=== PATIENT | female | born 1975 | race Caucasian/White ===

== ENCOUNTER 2016-06-19 12:19 | Inpatient (IN) ==
[2016-06-20] MEDS ORDERED: TUBERSOL ID ONE (16:19)
[2016-06-20 16:27] LABS: URINE SOURCE CLEAN CATCH
[2016-06-20 16:45] LABS: BILIRUBIN URINE NEGATIVE (NEGATIVE); BLOOD URINE NEGATIVE (NEGATIVE); CLARITY CLEAR (CLEAR); COLOR YELLOW; GLUCOSE URINE NEGATIVE (NEGATIVE); LEUKOCYTES URINE TRACE (NEGATIVE); NITRITE URINE NEGATIVE (NEGATIVE); PH URINE 6.5; PROTEIN URINE NEGATIVE (NEGATIVE); URINE MICROSCOPIC NEEDED? YES; UROBILINOGEN URINE NORMAL
[2016-06-20 16:48] LABS: URINE EPITHELIAL CELLS <10 /HPF (<10); URINE RBC <10 /HPF (<10); URINE WBC <10 /HPF (<10)
[2016-06-20 16:58] LABS: UR AMPHETAMINES QUAL NONE DETECTED (NONE DETECT); UR BARBITUATES QUAL NONE DETECTED (NONE DETECT); UR BENZODIAZEPIN QUAL NONE DETECTED (NONE DETECT); UR CANNABINOIDS QUAL NONE DETECTED (NONE DETECT); UR COCAINE QUAL NONE DETECTED (NONE DETECT); UR MDMA QUAL NONE DETECTED (NONE DETECT); UR METHADONE QUAL NONE DETECTED (NONE DETECT); UR METHAMPHETAMINE QUAL NONE DETECTED (NONE DETECT); UR OPIATES QUAL NONE DETECTED (NONE DETECT); UR OXYCODONE QUAL NONE DETECTED (NONE DETECT); UR PCP QUAL NONE DETECTED (NONE DETECT); UR TCA QUAL NONE DETECTED (NONE DETECT)
[2016-06-20 17:15] LABS: MANUAL DIFF NEEDED? NO
[2016-06-20 17:22] LABS: BASO% 0.4 % (0.0-0.8); EOS# 0.21 X1000 (0.0-0.7); EOS% 2.7 % (0.0-10.0); HEMATOCRIT 35.8 % (37.0-47.0); HEMOGLOBIN 11.5 g/dL (12.0-16.0); IMM GRAN# 0.03 X1000 (0.0-0.04); IMM GRAN% 0.4 % (0.0-0.5); LYMPH# 2.53 X1000 (1.2-3.4); LYMPH% 32.6 % (20.5-51.1); MCH 29.5 PG (27-31); MCHC 32.1 g/dL (33-37); MCV 91.8 FL (81-99); MONO# 0.42 X1000 (0.11-0.59); MONO% 5.4 % (1.7-9.3); MPV 9.7 FL (7.4-10.4); NEUT% 58.5 % (42.2-75.2); PLT 291 X1000 (130-400)
[2016-06-20 17:36] LABS: INR 0.88 (0.86-1.15); PROTIME 12.3 Seconds (12.1-15.5)
[2016-06-20 18:04] LABS: AGAP 12; ALBUMIN 3.9 g/dL (3.5-5.0); ALKALINE PHOSPHATASE 36 U/L (32-104); AMYLASE 31 U/L (20-200); BUN 13 mg/dL (8-22); CALCIUM 9.6 mg/dL (8.8-10.2); CHLORIDE 98 mmol/L (98-107); COSMO 274; GOT 21 U/L (10-30); GPT 36 U/L (10-36); LIPASE 20 U/L (13-60); POTASSIUM 3.6 mmol/L (3.5-5.1); SODIUM 137 mmol/L (136-145); TCO2 28 mmol/L (25-35); TOTAL BILIRUBIN < 0.15 mg/dL (0.20-1.00); TOTAL PROTEIN 6.9 g/dL (6.3-8.3)
[2016-06-20] MEDS ORDERED: SENOKOT PO PRN (18:24)
[2016-06-20] MEDS ORDERED: DULCOLAX PR PRN (18:24)
[2016-06-20] MEDS ORDERED: SALINE LOCK IV FLUID XX ONE (18:24)
[2016-06-20] MEDS ORDERED: IMODIUM PO PRN (18:24)
[2016-06-20] MEDS ORDERED: MAALOX PLUS LIQUID PO PRN (18:24)
[2016-06-20] MEDS ORDERED: TYLENOL PO PRN (18:24)
[2016-06-20] MEDS ORDERED: BENTYL PO PRN (18:24)
[2016-06-20] MEDS: THERA M PLUS PO SCH (18:58)
[2016-06-20] MEDS: FOLIC ACID PO SCH (18:59)
[2016-06-20] MEDS: LIBRIUM PO PRN (18:59)
[2016-06-20] MEDS: SUBOXONE 2 MG/0.5 MG SL SCH (18:59)
[2016-06-20] MEDS: PHENERGAN PO PRN (18:59)
[2016-06-20] MEDS: NICODERM PATCH TD SCH (19:00)
[2016-06-20] MEDS ORDERED: M.V.I.-12 10 ML, FOLIC ACID 1 MG, MAGNESIUM SULFATE 1 GM, THIAMINE 100 MG in NS 1,000 ML IV ONE (19:00)
[2016-06-20] MEDS: VITAMIN B-1 PO SCH (19:02)
[2016-06-20] MEDS: AMBIEN PO PRN (19:48)
[2016-06-20] MEDS: ROBAXIN PO PRN (23:44)
[2016-06-21] MEDS: PHENERGAN PO PRN ×3 (01:16→20:06)
[2016-06-21] MEDS: LIBRIUM PO PRN ×3 (01:16→20:06)
[2016-06-21] MEDS: SUBOXONE 2 MG/0.5 MG SL SCH (06:33)
[2016-06-21] MEDS: SUBOXONE 8 MG/2 MG SL SCH ×2 (09:01→20:06)
[2016-06-21] MEDS: FOLIC ACID PO SCH (09:01)
[2016-06-21] MEDS: VITAMIN B-1 PO SCH (09:01)
[2016-06-21] MEDS: NICODERM PATCH TD SCH (09:01)
[2016-06-21] MEDS: THERA M PLUS PO SCH (09:02)
[2016-06-21] MEDS: MOTRIN PO PRN (14:30)
[2016-06-21] MEDS: ROBAXIN PO PRN (14:30)
[2016-06-21] MEDS: ZOFRAN IV PRN ×2 (14:30→23:17)
[2016-06-21] MEDS: AMBIEN PO PRN (20:06)
[2016-06-21 20:33] LABS: URINE SOURCE CLEAN CATCH
[2016-06-21 21:08] LABS: BILIRUBIN URINE NEGATIVE (NEGATIVE); BLOOD URINE 4+ (NEGATIVE); CLARITY VERY CLOUDY (CLEAR); COLOR RED; GLUCOSE URINE NEGATIVE (NEGATIVE); LEUKOCYTES URINE 1+ (NEGATIVE); NITRITE URINE POSITIVE (NEGATIVE); PH URINE 6.5; PROTEIN URINE 2+(100 mg/dL) mg/dL (NEGATIVE); SP GRAVITY URINE 1.015; URINE MICROSCOPIC NEEDED? YES; UROBILINOGEN URINE NORMAL
[2016-06-21 21:30] LABS: URINE EPITHELIAL CELLS <10 /HPF (<10); URINE RBC TNTC /HPF (<10)
[2016-06-22] MEDS: FOLIC ACID PO SCH (08:35)
[2016-06-22] MEDS: SUBOXONE 8 MG/2 MG SL SCH ×2 (08:35→20:17)
[2016-06-22] MEDS: THERA M PLUS PO SCH (08:35)
[2016-06-22] MEDS: LIBRIUM PO PRN ×2 (08:35→20:20)
[2016-06-22] MEDS: VITAMIN B-1 PO SCH (08:35)
[2016-06-22] MEDS: PHENERGAN PO PRN ×2 (08:43→20:17)
[2016-06-22] MEDS: NICODERM PATCH TD SCH (10:11)
[2016-06-22] MEDS: ROBAXIN PO PRN ×2 (11:35→20:17)
[2016-06-22] MEDS: ZOFRAN IV PRN (11:35)
--- NOTE | 2016-06-22 15:35 | PROGRESS NOTE ---
DATE: 06/22/2016 SUBJECTIVE: Patient notes she still feels bad, did not sleep well. She is still hurting and aching all over. Occasional nausea. She is feeling much more depressed and stressed. Has not been out of bed. Denies any current paresthesias. Denies any sweating. Denies any fevers or chills. PHYSICAL: Signs reviewed and stable. She is awake, alert, oriented.HEENT: Normocephalic atraumatic. Neck: Supple. CV: Regular rate. Chest: Relatively clear. Abdomen: Soft. Extremities: Moves all extremities. Neurologic: No focal changes. Vital Signs: She is afebrile. Pulse 80s, respiratory 20. ASSESSMENT: 1. UTI. We will start her on Cipro. 2. Nausea and vomiting. 3. Abdominal pain. Hopefully treating the UTI will improve. 4. Muscle spasms improving. 5. Paresthesias resolved. 6. Opiate abuse withdrawal and stabilization. 7. Anxiety and depression. Overall patient has improved. She still is having issues with stress and depression which certainly could be creating some of her other symptoms. She has a UTI. We will place her on Cipro. We will continue Suboxone. Continue counseling. Hopefully home in the next 1-2 days. cc: Mario Chahal MD
[2016-06-22] MEDS: CIPRO PO SCH (20:16)
[2016-06-22] MEDS: AMBIEN PO PRN (20:17)
[2016-06-22] MEDS: SEROQUEL PO SCH (23:01)
[2016-06-22] MEDS: MOTRIN PO PRN (23:01)
[2016-06-23] MEDS: CIPRO PO SCH ×2 (08:48→20:20)
[2016-06-23] MEDS: PHENERGAN PO PRN ×2 (08:48→14:45)
[2016-06-23] MEDS: LIBRIUM PO PRN ×3 (08:48→20:29)
[2016-06-23] MEDS: THERA M PLUS PO SCH (08:48)
[2016-06-23] MEDS: VITAMIN B-1 PO SCH (08:48)
[2016-06-23] MEDS: FOLIC ACID PO SCH (08:48)
[2016-06-23] MEDS: SUBOXONE 8 MG/2 MG SL SCH ×2 (08:48→20:21)
[2016-06-23] MEDS: NICODERM PATCH TD SCH (10:37)
--- NOTE | 2016-06-23 13:59 | PROGRESS NOTE ---
DATE: 06/23/2016 SUBJECTIVE: The patient notes that she is still shaky and jittery. She is somewhat sleepy today. Denies any chest pain, palpitations. Denies any fevers or chills. OBJECTIVE: Vital Signs: Reviewed. Temperature 97 degrees, pulse 97, respiratory rate 18, BP 131/84, saturation 96% on room air. General: Patient is awake, alert. She is sleepy on exam but easily arousable. HEENT: Normocephalic. Neck: Supple. CV: Regular rate. Chest: Relatively clear. Abdomen: Soft. Extremities: Moves all extremities well. Neurologic: No focal neurological changes. Skin: Warm and dry. No rashes. LABS: Reviewed and stable. ASSESSMENT: 1. Opiate abuse, withdrawal, and stabilization. We will continue Suboxone. 2. Acute anxiety. We will continue symptomatic Librium. Started Seroquel last night which certainly could be the cause that she still so sleepy this morning. We will hold on to her tonight and follow, as she was having an anxiety attack last night and had not slept in 2 days. 3. Insomnia. 4. Myalgias. 5. Muscle spasms. PLAN: We will continue Suboxone. Continue Seroquel tonight. We will continue to follow. Keep her in-house 1 more day due to the somnolence and the acute anxiety as I am certainly afraid that she may make bad choices upon discharge. cc: Mario Chahal MD
[2016-06-23] MEDS: MOTRIN PO PRN (14:47)
[2016-06-23] MEDS: ROBAXIN PO PRN ×2 (14:49→20:21)
[2016-06-23] MEDS: AMBIEN PO PRN (20:21)
[2016-06-23] MEDS: SEROQUEL PO SCH (20:21)
[2016-06-24] MEDS: THERA M PLUS PO SCH (09:00)
[2016-06-24] MEDS: VITAMIN B-1 PO SCH (09:00)
[2016-06-24] MEDS: LIBRIUM PO PRN ×2 (09:01→20:11)
[2016-06-24] MEDS: SUBOXONE 8 MG/2 MG SL SCH ×2 (09:01→20:12)
[2016-06-24] MEDS: ROBAXIN PO PRN ×2 (09:01→20:12)
[2016-06-24] MEDS: CIPRO PO SCH (09:01)
[2016-06-24] MEDS: PHENERGAN PO PRN (09:01)
[2016-06-24] MEDS: NICODERM PATCH TD SCH (09:01)
[2016-06-24] MEDS: FOLIC ACID PO SCH (09:01)
[2016-06-24] MEDS ORDERED: SUBOXONE 2 MG/0.5 MG SL ONE (12:41)
[2016-06-24] MEDS: SEPTRA DS PO SCH ×2 (13:04→20:14)
[2016-06-24] MEDS: MOTRIN PO PRN ×2 (13:10→20:11)
--- NOTE | 2016-06-24 14:23 | PROGRESS NOTE ---
DATE: 06/23/2016 SUBJECTIVE: Patient still with complaints of abdominal pain, back pain, myalgias, still does not feel well. OBJECTIVE: Vital Signs: Reviewed. Temperature 97 degrees, pulse 99, respiratory rate 18, BP 107/77, saturations 100% on room air. General: Patient is awake, alert, oriented. She is currently in no real respiratory distress. HEENT: Normocephalic, atraumatic. SHAYLA. Neck: Supple. CV: Regular rate. Chest: Relatively clear. Abdomen: Soft, nondistended. Extremities: Moves all extremities. Neurologic: No changes. ASSESSMENT: 1. Urinary tract infection. Patient does appear to have a urinary tract infection on a recent urinalysis. However a culture apparently was not set up. Will change her from Cipro to Bactrim. 2. Myalgias. 3. Nausea, vomiting. 4. Abdominal pain. 5. Tremors. 6. Paresthesias. 7. Opiate abuse withdrawal. Patient continues to have some opiate withdrawal type symptoms. Therefore will increase her Suboxone to 8/2 in the a.m. and p.m. and give her 1-time dose of 2 mg this afternoon. cc: Mario Chahal MD
--- NOTE | 2016-06-24 19:34 | DISCHARGE SUMMARY ---
ADMISSION DATE: 06/20/2016 DISCHARGE DATE: DISCHARGE DIAGNOSES: 1. Nausea, vomiting. 2. Abdominal pain. 3. Tremors. 4. Myalgias. 5. Paresthesias. 6. Paroxysmal sweating. 7. Opiate abuse, withdrawal and stabilization. 8. Bipolar depression. CONSULTATIONS: None. PROCEDURES: None. BRIEF HOSPITAL COURSE: Patient is a 40-year-old female who presented to [facility] as noted on the HPI. Treated in usual fashion. Placed on Suboxone which she tolerated very well. She thankfully had an uneventful hospital course, continued to improve. On discharge she is awake, alert, oriented. She is in no distress. DISPOSITION: Thirty-five minutes was spent in discharge planning and instructions. Discussed with patient that she needs to avoid all persons, places, situations which she has been using and abusing in the past. She needs outpatient life counseling as well as drug counseling. Will discharge home on Suboxone 10/10 twice a day to follow up outpatient with clinic of her choice. cc: Mario Chahal MD
[2016-06-24] MEDS: AMBIEN PO PRN (20:11)
[2016-06-24] MEDS: SEROQUEL PO SCH (20:11)
[2016-06-24] MEDS ORDERED: PYRIDIUM PO ONE (21:39)
[2016-06-24] MEDS ORDERED: MIRALAX PO ONE (22:18)
[2016-06-25 00:04] LABS: BILIRUBIN URINE NEGATIVE (NEGATIVE); BLOOD URINE 4+ (NEGATIVE); CLARITY CLEAR (CLEAR); COLOR YELLOW; GLUCOSE URINE NEGATIVE (NEGATIVE); LEUKOCYTES URINE 1+ (NEGATIVE); NITRITE URINE NEGATIVE (NEGATIVE); PROTEIN URINE NEGATIVE (NEGATIVE); UROBILINOGEN URINE NORMAL
[2016-06-25] MEDS ORDERED: PYRIDIUM PO ONE (00:15)
[2016-06-25 00:23] LABS: URINE WBC <10 /HPF (<10)
[2016-06-25 00:25] LABS: URINE CULTURE PL NEEDED? YES; URINE EPITHELIAL CELLS <10 /HPF (<10); URINE SOURCE CLEAN CATCH
[2016-06-25 00:56] LABS: UR AMPHETAMINES QUAL NONE DETECTED (NONE DETECT); UR BARBITUATES QUAL NONE DETECTED (NONE DETECT); UR BENZODIAZEPIN QUAL PRESUMPTIVE POSITIVE (NONE DETECT); UR CANNABINOIDS QUAL NONE DETECTED (NONE DETECT); UR COCAINE QUAL NONE DETECTED (NONE DETECT); UR MDMA QUAL NONE DETECTED (NONE DETECT); UR METHADONE QUAL NONE DETECTED (NONE DETECT); UR METHAMPHETAMINE QUAL NONE DETECTED (NONE DETECT); UR OPIATES QUAL NONE DETECTED (NONE DETECT); UR OXYCODONE QUAL NONE DETECTED (NONE DETECT); UR PCP QUAL NONE DETECTED (NONE DETECT); UR TCA QUAL NONE DETECTED (NONE DETECT)
--- NOTE | 2016-06-25 08:31 | Diag Imaging Result Document ---
PROCEDURE NAME: KUB ABDOMEN - 06/24/2016 SUPINE ABDOMEN, TWO VIEWS: FINDINGS: There is stool throughout the colon. The bowel loops are not dilated. The gallbladder has been removed. No organomegaly. No abnormal abdominal or pelvic calcifications. IMPRESSION: Constipation.
[2016-06-25] MEDS: PYRIDIUM PO SCH ×3 (09:45→17:30)
[2016-06-25] MEDS: MIRALAX PO SCH (09:46)
[2016-06-25] MEDS: SUBOXONE 8 MG/2 MG SL SCH ×2 (09:46→20:48)
[2016-06-25] MEDS: THERA M PLUS PO SCH (09:46)
[2016-06-25] MEDS: LIBRIUM PO PRN ×2 (09:46→17:33)
[2016-06-25] MEDS: FOLIC ACID PO SCH (09:46)
[2016-06-25] MEDS: VITAMIN B-1 PO SCH (09:46)
[2016-06-25] MEDS: SEPTRA DS PO SCH ×2 (09:47→20:48)
[2016-06-25] MEDS: NICODERM PATCH TD SCH (09:47)
[2016-06-25] MEDS: ROBAXIN PO PRN ×2 (13:25→20:48)
[2016-06-25] MEDS: MOTRIN PO PRN (13:25)
[2016-06-25] MEDS: AMBIEN PO PRN (20:48)
[2016-06-25] MEDS: SEROQUEL PO SCH (20:48)
[2016-06-25] MEDS: PHENERGAN PO PRN (20:48)
[2016-06-26] MEDS: PHENERGAN PO PRN (02:31)
--- NOTE | 2016-06-26 08:40 | Diag Imaging Result Document ---
PROCEDURE NAME: ABDOMEN/PELVIS W/O CONTRAST - 06/25/[address]: INDICATION: Right lower quadrant pain. Hematuria. FINDINGS: Preliminary interpretation was given by the subcontracts manager radiologist. The lung bases show no significant abnormalities. Evaluation of the solid visceral organs is limited by lack of contrast. There are cholecystectomy clips. There is no hydronephrosis or urolithiasis. The appendix appears normal. There is no evidence for acute appendicitis. There is moderate constipation. There is no evidence for free fluid or free air. The uterus is surgically absent. There is no bowel distention to suggest obstruction. IMPRESSION: Constipation.
[2016-06-26] MEDS ORDERED: TOPROL XL PO SCH (09:00)
[2016-06-26] MEDS: NICODERM PATCH TD SCH (09:14)
[2016-06-26] MEDS: MIRALAX PO SCH (09:14)
[2016-06-26] MEDS: FOLIC ACID PO SCH (09:15)
[2016-06-26] MEDS: PYRIDIUM PO SCH ×3 (09:15→13:12)
[2016-06-26] MEDS: SEPTRA DS PO SCH (09:15)
[2016-06-26] MEDS: THERA M PLUS PO SCH (09:15)
[2016-06-26] MEDS: SUBOXONE 8 MG/2 MG SL SCH (09:15)
[2016-06-26] MEDS: VITAMIN B-1 PO SCH (09:15)
[2016-06-26] MEDS: LIBRIUM PO PRN (09:15)
[2016-06-26 15:48] VITALS: BP 98/81
--- NOTE | 2016-06-27 06:30 | DISCHARGE SUMMARY ---
ADMISSION DATE: 06/20/2016 DISCHARGE DATE: 06/26/2016 DISCHARGE DIAGNOSES: 1. Hematuria, improving. 2. Urinary tract infection, improving. 3. Flank pain, improving. 4. Chronic pain, stable. 5. Opiate abuse, withdrawal, and stabilization. 6. Nausea and vomiting. 7. Abdominal pain. 8. Tremors. 9. Myalgias. 10. Paresthesias. 11. Anxiety and depression. BRIEF HOSPITAL COURSE: The patient is a 40-year-old female who was admitted as noted on the HPI. Treated in the usual fashion. Placed on Suboxone, which she tolerated very well. She started having some flank pain and UA was repeated which demonstrated . She was placed on Cipro initially but noted that her symptoms did not improve. She was then changed over to Bactrim and then her symptoms began improving. CT of the abdomen did not show any stones or masses. Her symptoms continued to improve. On discharge, she was awake, alert. She was in no distress. DISPOSITION: I discussed with the patient that she needs to avoid all persons, places, and situations in which she has been using and abusing in the past. She needs to follow up outpatient with primary care of her choice, to follow up on her hematuria. Will continue Bactrim for 3 more days. cc: Mario Chahal MD
--- NOTE | 2016-07-08 16:20 | HISTORY AND PHYSICAL ---
CHIEF COMPLAINT: Nausea and vomiting. HISTORY OF PRESENT ILLNESS: Patient is a 40-year-old female who presented to [facility] secondary to nausea, vomiting, abdominal pain. She states that she has been having increased tremors and myalgias, increased sweating. She has been unable to keep down anything. She knows that each time this happens, she has started using or abusing again. SOCIAL HISTORY: Patient lives at home with 1 child. She is . Lives in [place]. SUBSTANCE ABUSE HISTORY: Patient began using oxycodone roughly around age 28. Currently taking 10 or more 20 mg pills a day. Started abusing Xanax at age 28. Currently will take up to 15 pills a day if she can get them. Denies any smoking or alcohol or other illicit substances. PAST MEDICAL HISTORY: Asthma. Bipolar. Depression. MEDICATIONS: No current medications. ALLERGIES: Toradol. REVIEW OF SYSTEMS: CINA score is 18 secondary to nausea, vomiting, abdominal pain, tremors, myalgias, frequent sweating, frequent changes in temperature, frequent yawning. She is unable to sit still, has paresthesias. Denies any headaches, blurred vision, change in vision. Denies focalized numbness, tingling or weakness in her extremities. Denies any dysuria, urinary frequency, urgency. FAMILY HISTORY: Noncontributory. PHYSICAL EXAMINATION: VITAL SIGNS: Reviewed. She is afebrile. Pulse 90. Respiratory rate 20. GENERAL: Patient is awake, alert, oriented. She is currently in no real respiratory distress. She is pleasant to talk with. Speech is regular. Memory is intact. NECK: Supple. CARDIOVASCULAR: Regular rate. CHEST: Relatively clear. ABDOMEN: Soft, nondistended, nontender. EXTREMITIES: Moves all extremities well. NEUROLOGIC: No focal neurological changes. SKIN: Warm and dry. No rashes. DIAGNOSTIC DATA: Pending. ASSESSMENT: 1. Nausea, vomiting. 2. Abdominal pain. 3. Tremors. 4. Myalgias. 5. Paresthesias. 6. Paroxysmal sweating. 7. Opiate abuse withdrawal and stabilization. PLAN: We will admit patient to hospital. IV fluids, banana bag. IV Ativan as needed. We will watch very closely for benzodiazepine withdrawal. We will start her on high-dose Librium and transition this down. Most likely will need to transition down from Librium and increase Suboxone. However, cannot started opiates at this point given her high rate of benzodiazepine abuse. Patient understands and is willing to comply. We will follow protocol. Further orders as needed. cc: Mario Chahal MD
== END 2016-06-26 16:28 | disposition home or self-care (01) ==
LOC: P.DIRADM 06-20 14:34 → SUATTDRO 06-20 14:34 → P.MEDSURG 06-20 14:52
PROVIDERS: ADMIT Family Medicine; ATTEND Family Medicine